=== PATIENT | female | born 1950 | race Caucasian/White ===

== ENCOUNTER 2022-06-13 09:10 | Day surgery (SDC) | payer MEDICARE, BC ==
[2022-06-12 11:08] LABS: BASOPHILS % (AUTO) 0.5 % (0-1); EOSINOPHILS # (AUTO) 0.3 X10'3 (0-0.9); EOSINOPHILS % (AUTO) 4.4 % (0-6); HEMATOCRIT 40.4 % (35.0-45.0); HEMOGLOBIN 13.6 g/dl (12.0-16.0); LYMPHOCYTES # (AUTO) 1.7 X10'3 (1.1-4.8); LYMPHOCYTES % (AUTO) 26.5 % (21-51); MEAN CORPUSCULAR HEMOGLOBIN 30.9 PG (27.0-31.0); MEAN CORPUSCULAR HGB CONC 33.6 g/dL (33.0-36.5); MEAN CORPUSCULAR VOLUME 91.9 FL (78-98); MONOCYTES # (AUTO) 0.8 X10'3 (0-0.9); MONOCYTES % (AUTO) 12.4 % (2-12); NEUTROPHILS # (AUTO) 3.5 X10'3 (1.8-7.7); NEUTROPHILS % (AUTO) 56.2 % (42-75); PLATELET COUNT 323 X10'3 (140-440); RED BLOOD COUNT 4.39 X10'6 (4.20-5.60); RED CELL DISTRIBUTION WIDTH 14.4 % (11.5-14.5); WHITE BLOOD COUNT 6.3 X10'3 (4.5-11.0)
[2022-06-12 11:15] LABS: ALBUMIN 3.4 G/DL (3.4-5.0); ANION GAP 4 (8-16); BLOOD UREA NITROGEN 24 MG/DL (7-18); BUN/CREATININE RATIO 26.7 (6.6-38.0); CALCIUM 9.7 MG/DL (8.5-10.1); CHLORIDE 105 MMOL/L (99-107); GLUCOSE 99 MG/DL (70-104); POTASSIUM 4.3 MMOL/L (3.5-5.1); SODIUM 140 MMOL/L (135-145); TOTAL CARBON DIOXIDE 31.1 MMOL/L (24-32); eGFR 62 ML/MIN
[2022-06-13] VITALS (10 sets, daily range): BP systolic 104–166; BP diastolic 45–103
[~2022-06-13] VITALS: Ht 175.3 cm; Wt 98.2 kg
[2022-06-13] MEDS ORDERED: acetylcysteine 200 MG/ml 4ml vial PO PRN (09:28)
[2022-06-13] MEDS ORDERED: diphenhydrAMINE 25mg capsule PO PRN (09:30)
[2022-06-13] MEDS ORDERED: normal saline 1,000 ML IV SCH (09:30)
[2022-06-13] MEDS ORDERED: FOLI0.4T6 PO (09:53)
[2022-06-13] MEDS ORDERED: OSC500T PO (09:53)
[2022-06-13] MEDS ORDERED: VIT1LOZE PO (09:53)
[2022-06-13] MEDS ORDERED: PARO20TA6 PO (09:53)
[2022-06-13] MEDS ORDERED: ATOR10TA87 PO (09:53)
[2022-06-13] MEDS ORDERED: CHOL20002 PO (09:53)
[2022-06-13] MEDS ORDERED: VITA400T10 PO (09:53)
[2022-06-13] MEDS ORDERED: ZOLP5TAB2 PO (09:53)
[2022-06-13] MEDS ORDERED: ASCO-321 PO (09:53)
[2022-06-13] MEDS ORDERED: verapamil 2.5 mg/ml inj IV ONE (11:58)
[2022-06-13] MEDS ORDERED: nitroGLYCERIN-Tridil 50MG/D5W 250 ML IV ONE (11:58)
[2022-06-13] MEDS ORDERED: iohexol 300mg/ml 100ml inj. ONE (11:59)
[2022-06-13] MEDS ORDERED: heparin 1,000unit/ml 10ml vial 10 ML ONE (11:59)
[2022-06-13] MEDS ORDERED: fentaNYL/PF 50MCG/1 ML 2ML syringe ONE ×2 (11:59→14:28)
[2022-06-13] MEDS ORDERED: midazolam 1 mg/ML 2ml injection ONE ×2 (11:59→13:36)
[2022-06-13] MEDS ORDERED: LIDOcaine 1% 30ml preserv. free vial ONE (11:59)
[2022-06-13] MEDS ORDERED: iohexol 350 MG/ML 50ML vial IV ONE (11:59)
[2022-06-13] MEDS ORDERED: furosemide 40mg/4ml inj ONE (15:13)
[2022-06-13 15:27] LABS: ISTAT HGB ART 13.3 g/dl (12.0-16.0); ISTAT Hct ART 39 %PCV (35-45); ISTAT O2 SATURATION ARTERIAL 91 % (95-98); ISTAT SOURCE ART
--- NOTE | 2022-06-13 16:00 | NUR ---
placed f/c without difficulty and obtained 350ml upon insertion.
[2022-06-13] MEDS ORDERED: potassium Cl 20 mEq SR tablet PO ONE (16:31)
[2022-06-13] MEDS ORDERED: HYDROcodone/acetaminophen 10/325mg tab PO PRN (18:10)
[2022-06-13] MEDS ORDERED: normal saline 1000ml 1,000 ML IV SCH (18:10)
[2022-06-13] MEDS ORDERED: HYDROcodone/acetaminophen 5mg/325mg tablet PO PRN (18:10)
[2022-06-13] MEDS ORDERED: potassium chloride 10mEq ER tablet PO ONE (18:15)
--- NOTE | 2022-06-13 19:25 | NUR ---
f/c removed without any difficulty.
--- NOTE | 2022-06-13 19:30 | NUR ---
pt voided in bathroom after f/c removed.
[2022-06-15 09:06] LABS: ISTAT Hct MIX 39 %PCV (35-45); ISTAT O2 SATURATION MIX VENOUS 59 % (60-80); ISTAT SOURCE VEN
== END 2022-06-13 20:05 | disposition home or self-care (01) ==
LOC: SSTAY O 09:10
PROVIDERS: ATTEND Internal Medicine Cardiovascular Disease
DX: R94.39 Abnormal result of other cardiovascular function study (principal); I42.0 Dilated cardiomyopathy; I25.5 Ischemic cardiomyopathy; E78.5 Hyperlipidemia, unspecified; J44.9 Chronic obstructive pulmonary disease, unspecified
CPT/HCPCS: 36415; 76937; 80048; 82803; 85014; 85025; 85610; 93005; 93460; 99152; 99153; C1751; C1769; C1894; J1644; J1940; J2250; J3010; J3490; J7030; Q0163; Q9967; A4615; A6258; A6402

== ENCOUNTER 2022-12-31 09:42 | Outpatient (CLI) | payer MEDICARE, BC ==
[~2022-12-31 09:42] MED LIST: ASCO-321 PO; ATOR10TA87 PO; CHOL20002 PO; FOLI0.4T6 PO; OSC500T PO; PARO20TA6 PO; VIT1LOZE PO; VITA400T10 PO; ZOLP5TAB2 PO
== END 2022-12-31 23:59 | disposition home or self-care (01) ==
LOC: CARD DIAG 09:42
PROVIDERS: ATTEND Internal Medicine Cardiovascular Disease
DX: I08.8 Other rheumatic multiple valve diseases (principal); R06.02 Shortness of breath
CPT/HCPCS: 93306